=== PATIENT | male | born 1955 | race Caucasian/White ===

== ENCOUNTER 2023-11-16 18:10 | Emergency (ER) | payer BC, MEDICARE, OTHER ==
[2023-11-16] MEDS ORDERED: Lidocaine 1% PF 5 ML VIAL ONE ×2 (19:15→20:45)
[2023-11-16] MEDS ORDERED: Amoxicillin/Potassium Clav 875 MG TAB ONE (21:19)
== END 2023-11-16 21:33 | disposition home or self-care (01) ==
LOC: BURERS 18:10
DX: S62.624B Displaced fracture of middle phalanx of right ring finger, initial encounter for open fracture (principal); W01.0XXA Fall on same level from slipping, tripping and stumbling without subsequent striking against object, initial encounter; I10 Essential (primary) hypertension; Z79.82 Long term (current) use of aspirin; Z79.899 Other long term (current) drug therapy
CPT/HCPCS: 26770